=== PATIENT | male | born 1955 | race Caucasian/White ===

== ENCOUNTER → 2016-09-27 | Day surgery (SDC) | payer MEDICAID ==
[~2016-09-27] MED LIST: DEXAMETHASONE 4 MG/ML VIAL IV ONE; FENTANYL 100 MCG/2 ML VIAL IV PRN; FENTANYL 250 MCG/5 ML VIAL IV ONE; GLYCOPYRROLATE 1 MG VIAL IM ONE; HYDROmorphone 1 MG INJECTION IV PRN; ISOVUE-300 (61%) 50 ML ONE; KETOROLAC TROMETH 30 MG/ML VIAL IM ONE; LABETALOL 20 MG/4 ML SYRINGE IV PRN; Levofloxacin 500 mg/100 ml D5W 500 MG/100 ML RTU IV ONE; MEPERIDINE 25 MG/ML TUBEX IV PRN; MIDAZOLAM 2 MG/2 ML VIAL IV ONE; ONDANSETRON HCL 4 MG ODT TAB PO PRN; ONDANSETRON HCL 4 MG/2 ML VIAL IV ONE; ONDANSETRON HCL 4 MG/2 ML VIAL IV PRN; PROPOFOL 200 MG/20 ML VIAL IV ONE; hydrALAZINE 20 MG/ML VIAL IV PRN
[2016-09-27 09:43] LABS: AUTOMATED BASOPHIL 0.8 % (0-2); AUTOMATED EOSINOPHIL 2.3 % (0-5); AUTOMATED LYMPH 18.7 % (17-44); AUTOMATED MONOCYTE 6.9 % (3-10); AUTOMATED NEUTROPHIL 71.3 % (45-76); MPV 7.8 fL (7.4-10.4)
[2016-09-27 09:55] LABS: BLOOD UREA NITROGEN 20 MG/DL (9-20); CALCIUM 9.3 MG/DL (8.4-10.2); CALCULATED OSMOLALITY 278 MOs/Kg (270-290); CHLORIDE 108 mEq/L (98-107); GLUCOSE 106 mg/dL (70-99); SODIUM LEVEL 143 mEq/L (137-146)
--- NOTE | 2016-09-27 10:21 | HIM.ANES ---
Anesthesia Evaluation & Plan Diagnoses: CALCULUS OF URETER (09/27/16) Consented Procedure: Cystoscopy, Left Retrograde Pyelogram, Ureteroscopy, Laser Ablation of Stone, DJ Stent Placement - Focused Review of Systems Cardiac History: No: Hx Hypertension, Hx Cardiac Disorders EKG Rhythm: Sinus Rhythm HEENT: Yes: Removable Dental Work No: Other HEENT Problems Hx Other HEENT Problems: Wears glasses Respiratory: Yes: Other Hx Respiratory No: Hx Home O2 Gastrointestinal: Yes: Hx Gastrointestinal Disorders No: Hx Gastroesophageal Reflux Disease Genitourinary: Yes: Other Genitourinary Neurological/Musculoskeletal: Yes: Hx Migraine, Hx Back Pain, Hx Neurological Disorders No: HX Cerebrovascular Accident Psychological: No Hx Mental/Emotional Disorders Blood/Autoimmune: No: Hx AIDS, Hx Hepatitis (type) Smoking Status: Heavy tobacco smoker (5 or more cigarettes/day or daily pipe/ cigar) Past Social History: Denies: Alcohol Use Surgical History: Yes: Ureter Stent Other Surgical History: 09/27/16 10:20 duodenal ulcers from goody powder,2015 brain surgery 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 negative: Rhonchi, Wheezing Any problems with anesthesia, including nausea and vomiting?: No Any relatives with a history of Malignant Hyperthermia?: No Does patient have a history of Malignant Hyperthermia?: No Beta Dot given (if appropriate): N/A Does the patient have a history of Motion Sickness-: No Other: CBC/BMP/Other 09/27/16 09:29 09/27/16 09:29 Allergies Allergy/AdvReac Type Severity Reaction Status Date / Time No Known Drug Allergies Allergy Unknown Verified 09/27/16 09:51 Home Medications Medication Instructions Recorded Last Taken Type Hydrocodone/Acetaminophen 1 tab PO TID 09/27/16 09/27/16 07:00 History [Hydrocodon-Acetaminoph 7.5-325] Meloxicam [Mobic] 1 tab PO DAILY 09/27/16 09/24/16 07:00 History Tizanidine HCl 1 tab PO Q8H 09/27/16 09/27/16 07:00 History Height and Weight Patient's height 5 ft 5 in Patient's weight 81.647 kg Vital Signs Temperature 97.7 F 09/27/16 09:36 Pulse Rate 82 09/27/16 09:36 Respiratory Rate 16 09/27/16 09:36 Blood Pressure 111/61 09/27/16 09:36 Pulse Oxygen Saturation 97 09/27/16 09:36 METS - Level of Activity: Climbing stairs(1 flight),walking level ground, running short distance - Anesthetic Plan Anesthesia Type: General ASA Class: 3 -: I have examined this patient and reviewed the medical record. The patient has been assessed prior to anesthesia. Risks and benefits of anesthesia and anesthetic technique options have been discussed and all questions answered. The patient accepts the risk and desires me to proceed with the planned anesthetic.
[2016-09-27 14:44] VITALS: TEMP 97.4
[2016-09-27 15:42] VITALS: BP 145/64; PULSE 85
--- NOTE | 2016-09-27 20:34 | HIMOP ---
DATE OF PROCEDURE: 09/27/2016 PREOPERATIVE DIAGNOSES: Large left distal ureteral stone with hydronephrosis. POSTOPERATIVE DIAGNOSIS: Large left distal ureteral stone with hydronephrosis. PROCEDURE: Cystoscopy, left ureteroscopy, laser lithotripsy of large left distal ureteral stone, retrograde pyelogram, and placement of double-J stent, 6-Citizen [place] 24-cm double-J stent without a string was used. ANESTHESIA: General. SURGEON: Marcus Baez M.D. DESCRIPTION OF PROCEDURE: This patient was taken to the operating room, was given general anesthesia. After that, he was put on lithotomy position, and was prepped and draped in usual sterile fashion. A camera and C-arm were used throughout the procedure as needed. Then, a 23- Citizen [place] cystoscope was introduced in the bladder. Bladder was examined. There was no evidence of any bladder tumors or stones. Both ureteral orifices were normally located. Then, a Glidewire was passed through the left ureteral orifice and careful manipulation of the guidewire was bypassed around the stone into the renal pelvis on that side. Over the guidewire, a balloon dilating catheter was passed and positioned across the area of the intramural ureter. The balloon was inflated to adequate pressure, and the pressure on the balloon was maintained for 30 seconds. Balloon was then deflated and removed. Guidewire was left in. Ureteroscopy was carried out. The patient was found to have a large stone which was broken down with a 550 laser fiber and 9 power settings. He took ( ) to pulverize the whole stone and some stone fragments were also basketed out and stone fragments in bladder also removed with the grasping forceps. Once the ureteroscopy was terminated, the rest of the ureter was free, but dilated. Ureteroscopy was terminated over the guidewire. Cystoscope was reintroduced. Using an open-ended catheter, retrograde pyelogram was obtained and regular ( ) was replaced over the guidewire. A 6-Citizen [place] 24-cm double-J catheter was passed and positioned, so that upper end was curled up in the renal pelvis, lower end was curled up in the bladder. Bladder was emptied. Cystoscope was removed. The patient was returned to the recovery room area in satisfactory condition. [id number]
--- NOTE | 2016-09-28 15:37 | SC.ANESPOS ---
Post-Anesthesia Note LOC: Fully Awake Post-Anesthesia Assessment: Awake, Returned to Baseline, Hemodynamically Stable , Pain Control Adequate Phase I & II Recovery Complete: Yes Apparent Anesthesia Complication: No : N - Vital Signs Blood Pressure: 145/64 Pulse: 85 Resp Rate: 16 O2 Sat: 93 Temp: 97.4 F
== END ==
LOC: SDC 09:02
PROVIDERS: ATTEND Urology
PROC: 0T778DZ Dilation of Left Ureter with Intraluminal Device, Via Natural or Artificial Opening Endoscopic (ICD-10-PCS; 2016-09-27)
PROC: 0TF78ZZ Fragmentation in Left Ureter, Via Natural or Artificial Opening Endoscopic (ICD-10-PCS; principal; 2016-09-27 11:20)
DX: N20.1 Calculus of ureter (principal); F17.210 Nicotine dependence, cigarettes, uncomplicated
CPT/HCPCS: 52356; 80048; 85025; C2617; J1100; J1885; J1956; J2250; J2405; J3010; J3490